=== PATIENT | male | born 1995 | race African-American/Black ===

== ENCOUNTER 2019-09-07 20:15 | Emergency (ER) | payer OTHER ==
[~2019-09-07] VITALS: Ht 170.2 cm; Wt 94.9 kg
[2019-09-08 02:00] VITALS: BP 120/78
== END 2019-09-08 02:44 | disposition home or self-care (01) ==
LOC: ER 20:15
DX: G40.909 Epilepsy, unspecified, not intractable, without status epilepticus (principal); J45.909 Unspecified asthma, uncomplicated
CPT/HCPCS: 99281

== ENCOUNTER 2020-08-07 09:28 | Emergency (ER) | payer OTHER ==
[~2020-08-07] VITALS: Ht 172.7 cm; Wt 101.9 kg
[2020-08-07 09:37] VITALS: BP 137/74
== END 2020-08-07 10:26 | disposition home or self-care (01) ==
LOC: ER 09:28
DX: G40.909 Epilepsy, unspecified, not intractable, without status epilepticus (principal)
CPT/HCPCS: 99283

== ENCOUNTER 2020-09-04 15:48 | Emergency (ER) | payer OTHER ==
[~2020-09-04] VITALS: Ht 172.7 cm; Wt 100.0 kg
[2020-09-04 17:04] VITALS: BP 128/76
== END 2020-09-04 17:04 | disposition home or self-care (01) ==
LOC: ER 15:48
DX: R56.9 Unspecified convulsions (principal); Z76.0 Encounter for issue of repeat prescription
CPT/HCPCS: 99283